=== PATIENT | female | born 1965 | race American Indian/Alaskan Native ===

== ENCOUNTER 2020-03-09 01:22 | Emergency (ER) | payer OTHER ==
[2020-03-09 02:27] VITALS: BP 147/85
== END 2020-03-09 03:10 | disposition left against medical advice (07) ==
LOC: EDSEX → ED 01:22
DX: S01.112A Laceration without foreign body of left eyelid and periocular area, initial encounter (principal); Z53.21 Procedure and treatment not carried out due to patient leaving prior to being seen by health care provider; V49.59XA Passenger injured in collision with other motor vehicles in traffic accident, initial encounter; Y93.89 Activity, other specified; Y92.410 Unspecified street and highway as the place of occurrence of the external cause; Y99.8 Other external cause status